=== PATIENT | female | born 1930 | race Caucasian/White ===

== ENCOUNTER 2017-08-10 22:21 | Emergency (ER) | payer MEDICARE ==
[~2017-08-10] VITALS: Ht 160 cm; Wt 59.0 kg
[~2017-08-10 22:21] MED LIST: ALEVE220 MG PO; AUGMENTIN 875 M1 TAB PO; CLARITIN10 MG PO; FLONASE ALLERG9.9 ML NAS; LISINOPRIL10 MG PO; MACROBID100 M1 PO; PREDNISONE10 MG PO; ROBITUSSIN AC 110 ML PO; SIMVASTATIN5 MG PO; VITAMIN D1000 IU PO
[2017-08-10 23:15] LABS: BILIRUBIN NEGATIVE (NEGATIVE); BLOOD 1+ (NEGATIVE); CLARITY SL CLOUDY (CLEAR); COLOR YELLOW (YELLOW); GLUCOSE NEGATIVE (NEGATIVE); KETONE 1+ (NEGATIVE); LEUKO ESTERASE 2+ (NEGATIVE); NITRITE NEGATIVE (NEGATIVE); SPECIFIC GRAVITY <= 1.005 (1.005-1.030); UROBILINOGEN 0.2 E.U./dl (0.2-1.0)
[2017-08-10 23:29] LABS: BACTERIA TRACE
[2017-08-10 23:30] LABS: WBC 16-20 wbc/hpf (0-5)
[2017-08-10 23:36] LABS: BASO % 0.3 % (0.0-1.0); EOS # 0.1 10*3/uL (0.0-0.4); EOS % 1.2 % (1.0-4.0); HEMATOCRIT 40.7 % (37.0-47.0); HEMOGLOBIN 13.9 g/dl (12.0-16.0); LYMPH # 1.2 10*3/uL (1.3-4.4); LYMPH % 13.6 % (27.0-41.0); MEAN CELL VOLUME 87.5 fl (81.0-99.0); MEAN CORPUSCULAR HGB 29.9 pg (27.0-31.0); MEAN CORPUSCULAR HGB CONC 34.2 g/dl (33.0-37.0); MEAN PLATELET VOLUME 10.2 fl (9.6-12.3); MONO # 0.9 10*3/uL (0.1-1.0); MONO % 10.2 % (3.0-9.0); NEUT # 6.4 10*3/uL (2.3-7.9); NEUT % 74.2 % (47.0-73.0); PLATELET COUNT AUTOMATED 251 10*3/uL (130-400); RED BLOOD COUNT 4.65 10*6/uL (4.10-5.10); RED CELL DISTRI WIDTH 13.8 % (0-14.5); WHITE BLOOD COUNT 8.7 10*3/uL (4.8-10.8)
[2017-08-10 23:54] LABS: ALBUMIN 3.6 gm/dl (3.1-4.5); ALKALINE PHOSPHATASE 54 U/L (45-117); BUN 14 mg/dl (7-24); CHLORIDE 97 mmol/L (98-107); CREATININE 0.75 mg/dL (0.55-1.02); POTASSIUM 3.6 mmol/L (3.5-5.1); SGOT/AST 32 IU/L (3-35); SGPT/ALT 23 U/L (12-78); SODIUM 133 mmol/L (136-145); TOTAL PROTEIN 6.7 gm/dL (6.4-8.2)
[2017-08-11] MEDS ORDERED: TAMIFLU30 MG PO (01:32)
[2017-08-11] MEDS ORDERED: MACROBID100 M1 PO (01:32)
== END 2017-08-11 01:52 | disposition home or self-care (01) ==
LOC: ED 22:21
PROVIDERS: Emergency Medicine; Internal Medicine
DX: N39.0 Urinary tract infection, site not specified (principal); R31.9 Hematuria, unspecified; E86.0 Dehydration; R19.7 Diarrhea, unspecified; R42 Dizziness and giddiness; R53.1 Weakness; Z88.6 Allergy status to analgesic agent; Z79.899 Other long term (current) drug therapy

== ENCOUNTER → 2019-05-03 | Outpatient (CLI) | payer MEDICARE ==
[~2019-05-03] MED LIST changes: +APAP325 MG PO; +HYDROCODONE-AC1 EAC1 PO; +LEXAPRO10 MG PO; +LEXAPRO5 M1 PO; +LISINOPRIL20 MG PO; +MIRALAX17 GM PO; +SIMVASTATIN40 MG PO; +TAMIFLU30 MG PO; +ZESTORETIC 20-1 EACH PO
== END | disposition home or self-care (01) ==
LOC: LAB 11:08
PROVIDERS: Nurse Practitioner Primary Care
DX: R19.7 Diarrhea, unspecified (principal)

== ENCOUNTER → 2020-01-25 | Outpatient (CLI) | payer MEDICARE | END | disposition home or self-care (01) | LOC: RAD 12:54 | DX: M85.89 Other specified disorders of bone density and structure, multiple sites (principal); Z78.0 Asymptomatic menopausal state ==

== ENCOUNTER → 2020-04-28 | Outpatient (CLI) | payer MEDICARE | END | disposition home or self-care (01) | LOC: CARD 11:26 | PROVIDERS: ATTEND Nurse Practitioner Primary Care | DX: I36.1 Nonrheumatic tricuspid (valve) insufficiency (principal); I35.0 Nonrheumatic aortic (valve) stenosis ==

== ENCOUNTER → 2020-11-12 | Outpatient (CLI) | payer MEDICARE | LOC: WOUNDCARE 12:30 | PROVIDERS: ATTEND Nurse Practitioner | DX: L89.152 Pressure ulcer of sacral region, stage 2 (principal); E87.1 Hypo-osmolality and hyponatremia; I10 Essential (primary) hypertension; M81.0 Age-related osteoporosis without current pathological fracture; J18.9 Pneumonia, unspecified organism; E55.9 Vitamin D deficiency, unspecified; F32.9 Major depressive disorder, single episode, unspecified; Z90.710 Acquired absence of both cervix and uterus; Z79.82 Long term (current) use of aspirin ==

== ENCOUNTER → 2020-11-19 | Outpatient (CLI) | payer MEDICARE | LOC: WOUNDCARE 00:55 | PROVIDERS: ATTEND Nurse Practitioner | DX: L89.152 Pressure ulcer of sacral region, stage 2 (principal); I10 Essential (primary) hypertension; M81.0 Age-related osteoporosis without current pathological fracture; E55.9 Vitamin D deficiency, unspecified; F32.9 Major depressive disorder, single episode, unspecified; Z90.710 Acquired absence of both cervix and uterus; Z79.82 Long term (current) use of aspirin ==